=== PATIENT | female | born 1990 | race Caucasian/White ===

== ENCOUNTER 2024-05-15 16:57 | Emergency (ER) | payer OTHER, SELFPAY ==
[2024-05-15 17:11] VITALS: BP 148/89
--- NOTE | 2024-05-15 18:11 | ED.GENMED ---
History of Present Illness
<ROLANDO Alston - Last Filed: 05/15/24 20:34>
General
Chief Complaint: Anxiety
Source: patient
Exam Limitations: none
Time Seen by Provider: 05/15/24 17:39
Nursing documentation reviewed up to this point in time: agreed with
History of Present Illness
History of Present Illness:
Patient is a 34-year-old female presents to the ER for evaluation. Patient reports about an hour prior to arrival she was sitting in her room upstairs working from home she got up and walked down the steps and while walking down the steps felt
lightheaded like she might pass out. She walked to the kitchen and sat down and reports her whole entire face both sides of her cheeks felt numb her lips started to tighten and she was not able to open her mouth. She felt numbness in her hands.
EMS was called and gave her Versed IV which improved symptoms. Patient started to feel similar symptoms again of face tingling bilaterally with a very anxious and was given Versed again. Patient now feeling much better. She does drink alcohol
daily and reports that she drinks about 5 white claws every day. She has no prior history of withdrawal seizures or seizures. She was at a family doctor appointment recently and was told she had sinus tachycardia her heart rate was 120. She
reports she was started on metoprolol but did not start that yet. Patient had no associated chest pain. Patient reports she did not eat at all today. She did drink some water today.
She does take Adderall for ADHD and spironolactone for her skin. She stopped drinking coffee but does admit that she had a coffee today.
\\
Review of Systems
<ROLANDO Alston - Last Filed: 05/15/24 20:34>
Review of Systems
Allergies reviewed?: Yes
All Other Systems: ROS reviewed and negative except as documented in HPI and ROS
Constitutional: Reports no symptoms; Denies fever, fatigue or chills
EENT: Reports no symptoms
Respiratory: Denies trouble breathing
Cardiac: Reports other ('felt like I was going to pass out.' )
ABD/GI: Reports no symptoms; Denies abdominal pain, nausea or vomiting
Musculoskeletal: Reports no symptoms
Skin: Reports no symptoms
Neurological: Reports no symptoms
Psychiatric: Reports no symptoms
Phy Exam
<ROLANDO Alston - Last Filed: 05/15/24 20:34>
General Physical Exam
General Presentation: no apparent distress
General age: appears stated age
General Skin: warm and dry
General Habitus: normal
General Mental: alert
General Hydration: dry mucous membranes
Eye Exam
Eye Exam: PERRL and EOMI
Eye Exam General: PERRL: bilateral and EOM intact: bilateral
Pupil Exam: Bilateral: round and reactive
Cardiovascular Exam
Cardiovascular Exam: no murmur and tachycardia
Pulmonary Exam
Pulmonary Exam: lungs clear and no respiratory distress
Neurological Exam
Neurological Exam: alert, oriented x3, no motor deficits and no sensory deficits
Tommy Coma Scale
Eye Opening: Spontaneous
Verbal Response: Oriented
Musculoskeletal Exam
Musculoskeletal Exam: full ROM
Skin Exam
Skin Exam: normal color and warm/dry
Psychiatric Exam
Psychiatric Exam: normal mood/affect
Course
<ROLANDO Alston - Last Filed: 05/15/24 20:34>
Orders/Labs/Results
Orders:
Orders
05/15/24 18:07
0.9% Sodium Chloride 1000 ml [Nss] 1,000 ml IV BOLUS
Test Result ONCE
05/15/24 18:10
EKG [Electrocardiogram (*1)] Urgent
Reason for Study: Bradycardia / Tachycardia
EKG- Treatment ONCE
05/15/24 18:18
Complete Blood Count/With Diff Urgent
Thyroid profile [TSH Reflex To Free T4] Urgent
05/15/24 19:17
Comprehensive Metabolic Panel Urgent
HCG, Serum Qualitative Screen Urgent
05/15/24 20:20
Vital Signs- Treatment ONCE
Frequency: Once
Abnormal Lab Results
05/15/24 05/15/24
18:18 19:17
MCH 32.2 H pg
(27.0-31.0)
Absolute Lymphs (auto) 0.9 L 10^3/uL
(1.2-3.4)
Lymphocytes % 19.1 L %
(20.5-51.1)
Carbon Dioxide 20 L mmol/L
(22-30)
BUN 5 L mg/dl
(7-17)
Calcium 7.7 L mg/dl
(8.4-10.2)
AST 228 H U/L
(14-36)
ALT 257 H U/L
(0-35)
Total Protein 5.7 L g/dl
(6.3-8.2)
Albumin 3.4 L g/dl
(3.5-5.0)
05/15/24 18:18
05/15/24 19:17
Vital Signs
Initial and Last Documented VS:
Initial Vital Signs
Temp Pulse Resp BP Pulse Ox
98.4 F 120 20 148/89 100
05/15/24 17:11 05/15/24 17:11 05/15/24 17:11 05/15/24 17:11 05/15/24 17:11
Last Documented Vital Signs
Temp Pulse Resp BP Pulse Ox
98.4 F 120 20 148/89 100
05/15/24 17:11 05/15/24 17:11 05/15/24 17:11 05/15/24 17:11 05/15/24 17:11
Business Development Associate consulted with Physician
Business Development Associate consulted with physician?: Yes
Name of Physician Consulted: Elsi
<Claudia Calzada MD - Last Filed: 05/15/24 20:15>
Orders/Labs/Results
Orders:
Orders
05/15/24 18:07
0.9% Sodium Chloride 1000 ml [Nss] 1,000 ml IV BOLUS
Test Result ONCE
05/15/24 18:10
EKG [Electrocardiogram (*1)] Urgent
Reason for Study: Bradycardia / Tachycardia
EKG- Treatment ONCE
05/15/24 18:18
Complete Blood Count/With Diff Urgent
Thyroid profile [TSH Reflex To Free T4] Urgent
05/15/24 19:17
Comprehensive Metabolic Panel Urgent
HCG, Serum Qualitative Screen Urgent
05/15/24 20:20
Vital Signs- Treatment ONCE
Frequency: Once
Abnormal Lab Results
05/15/24 05/15/24
18:18 19:17
MCH 32.2 H pg
(27.0-31.0)
Absolute Lymphs (auto) 0.9 L 10^3/uL
(1.2-3.4)
Lymphocytes % 19.1 L %
(20.5-51.1)
Carbon Dioxide 20 L mmol/L
(22-30)
BUN 5 L mg/dl
(7-17)
Calcium 7.7 L mg/dl
(8.4-10.2)
AST 228 H U/L
(14-36)
ALT 257 H U/L
(0-35)
Total Protein 5.7 L g/dl
(6.3-8.2)
Albumin 3.4 L g/dl
(3.5-5.0)
05/15/24 18:18
05/15/24 19:17
Vital Signs
Initial and Last Documented VS:
Initial Vital Signs
Temp Pulse Resp BP Pulse Ox
98.4 F 120 20 148/89 100
05/15/24 17:11 05/15/24 17:11 05/15/24 17:11 05/15/24 17:11 05/15/24 17:11
Last Documented Vital Signs
Temp Pulse Resp BP Pulse Ox
98.4 F 120 20 148/89 100
05/15/24 17:11 05/15/24 17:11 05/15/24 17:11 05/15/24 17:11 05/15/24 17:11
<ROLANDO Alston - Last Filed: 05/15/24 20:34>
MDM/Problems Addressed
MDM/Problems Addressed:
Patient is a 34-year-old female as documented presented for an episode of lightheadedness While walking down the steps feel like she was get a pass out. She then had tingling throughout her face arms her hands or the spasm. This was likely
anxiety over the near syncopal event. No neurological deficits. She was given Versed twice by EMS and was feeling better on arrival. She presented awake alert mildly anxious however no acute distress no associated chest pain. She does reports
she is a daily drinker she has never had any withdrawal seizures. She did present tachycardic but reports recently she was seen by her primary care provider last week and was diagnosed with sinus tachycardia and did not yet start metoprolol.
She was hydrated here and heart rate is in the low 100s she is in no acute distress her white count is normal hemoglobin is stable at 14.2, her hCG is negative her LFTs are elevated consistent with alcohol use and her TSH is normal.
Patient is not nauseous diaphoretic no evidence of withdrawal at this time. She is calm and cooperative. Case reviewed with ED physician ED physician did review labs including elevated liver functions and importance of close following up with
family doctor. Patient however stable for discharge.
I did offer patient [facility] and she was willing to speak with them her number was given to Cheryle of [facility].
<ROLANDO Alston - Last Filed: 05/15/24 20:34>
*Pulse Oximetry
Patient hypoxic: no
*EKG
Interpreted by ED Provider?: Yes
Comparison EKG: no comparison EKG present
Heart Rate: 120
Rate: tachycardiac
Rhythm: sinus
Ischemia: no ischemia
*Critical Care Note
Total Time (30-74mins, 75-104mins- exclusive of procedures): Not Applicable
ED Attending Note
<ROLANDO Alston - Last Filed: 05/15/24 20:34>
-
Portions of this chart may have been created with voice recognition software.� Occasional wrong word or��sound alike� substitutions may have occurred due to the inherent limitations of voice recognition software.
<Claudia Calzada MD - Last Filed: 05/15/24 20:15>
ED Attending Note
Patient seen and examined by attending physician: Yes
I performed the substantive portion of visit, reviewed & personally made and approve the management plan that is documented in note by myself or KEZIA.: Yes
ED Attending Note:
34 yr old female with hx of 'sinus achycardia' (noncompliant with rx'd beta james) presents with episodes of feeling dizzy, hand spasms, breathing heavy (but not sob) and face/mouth numbness bialt. EMS called, pt gven versed, now feels much
beter. No cp, no leg swelling no f/c/n/v/abdp ain. Pt drinks 2 'white claw' per night, last drink last night. Does not have a tremor, no hallucinations. Do not clinically suspect withdrawal. Repeat heart rate is 98 here and patient feels well
and would like to go home. Suspect patient had anxiety related event. Doubt PE given no dyspnea, leg swelling, hypoxia, etc. etc. Doubt ACS. Patient aware of lab abnormalities and will be given a copy of labs and ECG for follow-up this week.
Discharge Plan
Departure
Patient Disposition: Home (Routine Discharge)
Date of Disposition: 05/15/24
Time of Disposition: 20:20
Patient with high blood pressure during this ER visit?: Yes
Covid-19: Not Applicable
Discharge Problem:
Lightheadedness
Referrals:
Lupe Berger NP [Family Provider] -
Activity Restrictions/Additional Instructions:
As discussed please stay well-hydrated. Also your liver function tests are elevated please follow-up with your family doctor for this. Your heart rate was also elevated however improved
In addition as you requested here is information for help with alcohol use.
[facility] : [phone]([facility]heryle)
Return if any worsening of symptoms peer
Interventions
Interventions:
*Risk Screen - Suicide Last Done: 05/15/24 17:11
*General Assessment Last Done: 05/15/24 17:11
*Neglect/Abuse Screening Last Done: 05/15/24 17:11
ED- Fall Risk Assessment Last Done: 05/15/24 19:19
*ED COVID-19 Vaccine History Last Done: 05/15/24 17:11
ED-Psychological Assessment Last Done: 05/15/24 17:11
Discharge Date and Time
Print Language: INDONESIAN
[2024-05-15] MEDS: NSS 1000 IV (18:18)
[2024-05-15 18:28] LABS: % Basophils 0.8 % (0-2); % Eosinophils 0.2 % (0-6); % Immature Granulocytes 0.4 % (0-0.5); % Lymphocytes 19.1 % (20.5-51.1); % Monocytes 8.2 % (1.7-9.3); % Neutrophils 71.3 % (42.2-75.2); Absolute Lymphocytes 0.9 10^3/uL (1.2-3.4); Absolute Monocytes 0.4 10^3/uL (0.1-0.6); Absolute Neutrophils 3.5 10^3/uL (1.4-6.5); Hematocrit 40.8 % (37.0-47.0); Hemoglobin 14.2 g/dL (12.0-16.0); Mean Corp Hgb Conc. 34.8 g/dL (33.0-37.0); Mean Corpuscular Hgb 32.2 pg (27.0-31.0); Mean Corpuscular Volume 92.5 fL (81.0-99.0); Mean Platelet Volume 9.6 fL (7.4-10.4); Nucleated Red Blood Cells % 0 %; Platelet Count 183 10^3/uL (130-400); Red Blood Cell Count 4.41 10^6/uL (4.20-5.40); Red Cell Dist. Width 13.1 % (11.5-14.5); White Blood Cell Count 4.9 10^3/uL (4.8-10.8)
[2024-05-15 19:22] LABS: TSH Reflex To Free T4 1.27 uIU/ml (0.47-4.68)
[2024-05-15 19:36] LABS: HCG, Serum Qualitative Screen Negative
[2024-05-15 19:40] LABS: ALT (SGPT) 257 U/L (0-35); AST (SGOT) 228 U/L (14-36); Albumin 3.4 g/dl (3.5-5.0); Alkaline Phosphatase 56 U/L (38-126); Blood Urea Nitrogen 5 mg/dl (7-17); Calcium 7.7 mg/dl (8.4-10.2); Carbon Dioxide 20 mmol/L (22-30); Chloride 106 mmol/L (98-107); Glucose 72 mg/dl (70-99); Potassium 3.8 mmol/L (3.5-5.1); Sodium 137 mmol/L (135-145); Total Bilirubin 0.5 mg/dl (0.2-1.3); Total Protein 5.7 g/dl (6.3-8.2); eGFR > 60.00
[2024-05-15 20:36] VITALS: BP 141/98
== END 2024-05-15 20:42 | disposition home or self-care (01) ==
LOC: EMR 16:57
PROVIDERS: Nurse Practitioner; EMERGENCY PHYSICIAN Emergency Medicine; FAMILY PHYSICIAN Nurse Practitioner Family
DX: R42 Dizziness and giddiness (principal); F90.9 Attention-deficit hyperactivity disorder, unspecified type; Z79.899 Other long term (current) drug therapy
CPT/HCPCS: 96360; 99284; 80053; 84443; 84703; 85025; 93005